=== PATIENT | male | born 1955 | race African-American/Black ===

== ENCOUNTER 2020-01-06 14:19 | Inpatient (IN) | payer BC ==
[~2020-01-06] VITALS: Ht 175.3 cm; Wt 83.0 kg
[2020-01-06 15:03] LABS: BASOPHIL % 0.2 % (0-2); PLATELET COUNT 243 x10^3mcL (130-400); RED CELL DISTRIBUTION WIDTH 13.9 % (11.5-14.5)
[2020-01-06 15:32] LABS: CALCIUM 9.3 mg/dL (8.5-10.1); CARBON DIOXIDE 24.5 mmol/L (21-32); CREATININE SERUM 1.3 mg/dL (0.7-1.3); POTASSIUM SERUM 3.8 mmol/L (3.5-5.1)
[2020-01-06 15:37] LABS: ALBUMIN 4.4 g/dL (3.4-5.0); BILIRUBIN TOTAL 1.1 mg/dL (0.20-1.00)
[2020-01-06 15:42] LABS: TOTAL PROTEIN, SERUM 8.8 g/dL (6.4-8.2)
[2020-01-06 16:11] LABS: CHOLESTEROL/HDL RATIO 3.9
[2020-01-06] MEDS ORDERED: ZOCOR10 MG PO (16:12)
[2020-01-06 16:37] VITALS: BP 119/71
[2020-01-06 16:45] VITALS: Ht 175.3 cm; Wt 83.0 kg
[2020-01-06 19:41] VITALS: BP 122/67
[2020-01-07 05:30] VITALS: BP 111/59
[2020-01-07 06:16] LABS: BASOPHIL % 0.4 % (0-2); PLATELET COUNT 203 x10^3mcL (130-400); RED CELL DISTRIBUTION WIDTH 13.9 % (11.5-14.5)
[2020-01-07 06:43] LABS: CALCIUM 8.2 mg/dL (8.5-10.1); CARBON DIOXIDE 25.8 mmol/L (21-32); CHLORIDE SERUM 105 mmol/L (98-107); CREATININE SERUM 1.1 mg/dL (0.7-1.3); GFR1 > 60 mL/min; GLUCOSE SERUM 85 mg/dL (74-106); MAGNESIUM 2.1 mg/dL (1.8-2.4); PHOSPHOROUS 3.5 mg/dL (2.5-4.9); POTASSIUM SERUM 3.4 mmol/L (3.5-5.1); SODIUM SERUM 141 mmol/L (136-145)
[2020-01-07 07:28] LABS: microscopic required? NO
[2020-01-07 07:47] LABS: UA SPECIFIC GRAVITY >=1.030 (1.005-1.035); urine erythrocyte NEGATIVE (NEGATIVE)
[2020-01-07 08:28] VITALS: BP 112/56
[2020-01-07 11:30] VITALS: BP 112/56
== END 2020-01-07 13:07 | disposition home or self-care (01) | DRG 379 ==
LOC: ED 14:19 → DU 15:00 → MU 15:19 → DU 16:09
PROVIDERS: Emergency Medicine; Internal Medicine; ADMIT Family Medicine
PROC: 0D5N8ZZ Destruction of Sigmoid Colon, Via Natural or Artificial Opening Endoscopic (ICD-10-PCS; principal; 2020-01-06 15:00)
PROC: 0D5L8ZZ Destruction of Transverse Colon, Via Natural or Artificial Opening Endoscopic (ICD-10-PCS; 2020-01-06 15:00)
DX: K62.5 Hemorrhage of anus and rectum (principal); E78.00 Pure hypercholesterolemia, unspecified; D72.829 Elevated white blood cell count, unspecified; E78.5 Hyperlipidemia, unspecified; Z79.899 Other long term (current) drug therapy
CPT/HCPCS: 45378; G0378; J1200; J1610; J2250; J2310; J3010; J3490; J7030; Q0092